=== PATIENT | female | born 1980 | race Caucasian/White ===

== ENCOUNTER → 2019-05-11 | Outpatient (CLI) | payer BC ==
[~2019-05-11] MED LIST: Motrin,Rufen800 MG PO; NORCO 5-325 TA1 EACH PO
[2019-05-11 14:39] LABS: BASO % 0.5 % (0.0-1.0); EOS # 0.1 10*3/uL (0.0-0.4); EOS % 1.6 % (1.0-4.0); HEMATOCRIT 39.9 % (37.0-47.0); HEMOGLOBIN 13.1 g/dl (12.0-16.0); LYMPH # 2.8 10*3/uL (1.3-4.4); LYMPH % 33.3 % (27.0-41.0); MEAN CELL VOLUME 103.1 fl (81.0-99.0); MEAN CORPUSCULAR HGB 33.9 pg (27.0-31.0); MEAN CORPUSCULAR HGB CONC 32.8 g/dl (33.0-37.0); MEAN PLATELET VOLUME 9.4 fl (9.6-12.3); MONO # 0.6 10*3/uL (0.1-1.0); MONO % 7.3 % (3.0-9.0); NEUT # 4.9 10*3/uL (2.3-7.9); NEUT % 57.1 % (47.0-73.0); PLATELET COUNT AUTOMATED 275 10*3/uL (130-400); RED BLOOD COUNT 3.87 10*6/uL (4.10-5.10); RED CELL DISTRI WIDTH 12.9 % (0-14.5); WHITE BLOOD COUNT 8.5 10*3/uL (4.8-10.8)
[2019-05-11 15:07] LABS: IRON 72 ug/dL (50-170); TOTAL IRON BINDING CAPACITY 324 ug/dl (250-450)
== END | disposition home or self-care (01) ==
LOC: LAB 14:08
PROVIDERS: Obstetrics & Gynecology
DX: D75.89 Other specified diseases of blood and blood-forming organs (principal)

== ENCOUNTER → 2019-05-18 | Day surgery (SDC) | payer BC ==
[~2019-05-18] VITALS: Ht 165.1 cm; Wt 65.8 kg
[2019-05-18 09:40] VITALS: BP 126/71
[2019-05-18 13:22] VITALS: BP 113/56
[2019-05-18 13:35] VITALS: BP 110/57
[2019-05-18 13:50] VITALS: BP 107/54
[2019-05-18 14:21] VITALS: BP 98/60
== END | disposition home or self-care (01) ==
LOC: SDC 05-11 14:00
DX: N83.8 Other noninflammatory disorders of ovary, fallopian tube and broad ligament (principal); N93.8 Other specified abnormal uterine and vaginal bleeding; N94.10 Unspecified dyspareunia; N80.8 Other endometriosis; I10 Essential (primary) hypertension; F17.210 Nicotine dependence, cigarettes, uncomplicated; Z98.890 Other specified postprocedural states